=== PATIENT | male | born 1965 | race Hispanic/Latino ===

== ENCOUNTER → 2024-02-27 | Outpatient (CLI) | payer BC | END | disposition home or self-care (01) | LOC: SHCH 12:48 | PROVIDERS: ATTEND Internal Medicine | DX: R94.31 Abnormal electrocardiogram [ECG] [EKG] (principal) | CPT/HCPCS: 93306 ==

== ENCOUNTER → 2024-05-05 | Outpatient (CLI) | payer BC ==
--- NOTE | 2024-05-05 11:00 | NUR ---
LEXISCAN STRESS TEST- NOT DONE [facility] SPOKE WITH MALA IN REGARDS TO PATIENT'S BASELINE VITAL SIGNS OF BLOOD PRESSURE READING OF 164/115 AND HEART RATE RANGE FROM 125-150 WHILE AT REST. PATIENT STATES NO PAIN OR DISCOMOFT. DR. SMITH MADE AWARE AND TELEPHONE ORDERS RECEIVED FOR LEXISCAN STRESS TEST NOT TO BE PERFORMED DUE TO ELEVATED VITAL SIGNS. PATIENT WILL RECEIVE CALL FROM [facility] TO RECEIVE FOLLOW UP APPOINTMENT FOR FURTHER EVALUATION. EKG FAXED TO MALA AT [phone]. PATIENT ADVISED TO VISIT CLOSEST ER IF CHEST PAIN, SHORTNESS OF BREATH, OR ANY NEW SYMPTOMS OCCUR. PATIENT STATED UNDERSTANDING.
== END | disposition home or self-care (01) ==
LOC: SHCH 08:32
PROVIDERS: ATTEND Internal Medicine
DX: R06.02 Shortness of breath (principal)